=== PATIENT | female | born 1955 | race Hispanic/Latino ===

== ENCOUNTER 2018-10-26 14:17 | Outpatient (CLI) | payer OTHER ==
--- NOTE | 2018-10-26 14:43 | RAD ---
XR Knee Rt 2 View HISTORY: Knee pain. Disability evaluation. COMPARISON: None. FINDINGS: A total knee prosthesis is in good position without evidence of loosening. The bones appear slightly demineralized. IMPRESSION: Total knee prosthesis in place.
--- NOTE | 2018-10-26 14:44 | RAD ---
XR Lumbar Spine 2 Or 3 View HISTORY: Back pain. Disability evaluation. COMPARISON: None. FINDINGS: The vertebral bodies are normal in height. Degenerative osteophytes are present with only m inimal disc narrowing at the L3-4 and L4-5 as well as L5-S1 levels. Degenerative facet changes are seen with a minimal spondylolisthesis of L5 on S1. IMPRESSION: Mild to moderate arthritic changes of the spine.
--- NOTE | 2018-10-26 14:45 | RAD ---
XR Chest Pa Lat STANDARD HISTORY: Disability evaluation. COMPARISON: None. FINDINGS: Heart size and mediastinum are within normal limits. The lungs are clear of infiltrates. Th ere are arthritic changes in the spine. IMPRESSION: No active intrathoracic disease.
== END 2018-10-26 14:18 | disposition home or self-care (01) ==
LOC: NAV RAD 14:17
PROVIDERS: ATTEND Family Medicine
DX: Z02.71 Encounter for disability determination (principal); I10 Essential (primary) hypertension; M54.5 Low back pain; M47.816 Spondylosis without myelopathy or radiculopathy, lumbar region; M17.0 Bilateral primary osteoarthritis of knee; Z96.651 Presence of right artificial knee joint
CPT/HCPCS: 71046; 72100